=== PATIENT | female | born 1965 | race African-American/Black ===

== ENCOUNTER 2019-06-01 10:29 | Emergency (ER) | payer BC ==
[~2019-06-01] VITALS: Ht 162.6 cm; Wt 68.0 kg
[2019-06-01] MEDS: ALBUTEROL SULFATE 2.5 MG/3 ML NEBU NEB ONE (10:36)
[2019-06-01] MEDS: IPRATROPIUM BROMIDE 0.5 MG/2.5 ML NEBU NEB ONE (10:36)
[2019-06-01] MEDS ORDERED: predniSONE 10 MG TABLET ONE (10:37)
[2019-06-01] MEDS ORDERED: predniSONE 50 MG TABLET ONE (10:38)
[2019-06-01] MEDS ORDERED: ALBUTEROL SULFATE 2.5 MG/3 ML NEBU ONE (10:39)
[2019-06-01] MEDS ORDERED: IPRATROPIUM BROMIDE 0.5 MG/2.5 ML NEBU ONE (10:40)
[2019-06-01] MEDS: predniSONE 20 MG TABLET PO ONE (10:48)
--- NOTE | 2019-06-01 11:09 | NUR ---
"I feel better. Can I go home?" Patient discharged to home in stable conditon with brisk steady gait. Written and verbal after care instructions given to patient. Patient verbalizes understanding & compliance of instructions. "MD excuse note from work/activity" was requested by patient as well.
[2019-06-01 11:12] VITALS: BP 129/78
== END 2019-06-01 11:09 | disposition home or self-care (01) ==
LOC: ER 10:29
DX: J98.01 Acute bronchospasm (principal)
CPT/HCPCS: 94640; 99283; J7512 ×2; A4663; J3590